=== PATIENT | female | born 1945 | race Caucasian/White ===

== ENCOUNTER 2019-12-07 17:16 | Observation (INO) ==
[~2019-12-07 17:16] MED LIST: ONDANSETRON 8 MG TAB.RAPDIS PO PRN
[2019-12-07] MEDS ORDERED: ALBUTEROL SULFATE/IPRATROPIUM 3 ML NEBU IH ONE ×2 (17:34→17:36)
[2019-12-07 17:52] LABS: Hematocrit 39.4 % (37.0-47.0); Mean Cell Volume 84.2 fl (78-100); Mean Corpuscular Hemoglobin 27.8 pg (27-31); Mean Platelet Volume 9.1 fl (8-12.5); Neutrophil # 4.9 K/mm3 (1.3-6.0); Neutrophil % 88.6 % (42-75.0); Platelet Count 220 K/mm3 (150-450); Red Blood Count 4.68 M/mm3 (4.2-5.4); Red Cell Distribution Width 14.8 % (11.5-14.0); White Blood Count 5.5 K/mm3 (4.0-10.5)
--- NOTE | 2019-12-07 17:55 | ERNOTE ---
Medical Problem HPI - Narrative Date of Service: 12/07/19 - General Chief Complaint: Nausea/Vomiting Time Seen by Provider: 12/07/19 17:27 Source: patient Exam Limitations: no limitations - Immun/Allergies/Home Medications Immunizations: IMMUNIZATION HX Immunizations Up to Date Yes History of Influenza Vaccine Yes Hx Pneumococcal Vaccination No Allergies/Adverse Reactions: Allergies No Known Allergies Allergy (Verified 12/07/19 17:22) Home Medications: HOME MEDICATIONS Aspirin 325 mg PO DAILY 06/29/14 [Last Taken 12/02/19] ALPRAZolam [Xanax] 0.5 mg PO BID PRN 04/21/18 [Last Taken Unknown] Cetirizine HCl [Zyrtec] 10 mg PO DAILY PRN 04/21/18 [Last Taken 12/04/19] Famotidine 20 mg PO DAILY PRN 04/21/18 [Last Taken 12/05/19] blood sugar diagnostic See Dose Instructions .ROUTE .MEDSUPPLY #20 ea 05/22/18 [Last Taken Unknown] diabetic supplies, miscellan. See Dose Instructions .ROUTE .MEDSUPPLY #1 ea 05/22/18 [Last Taken Unknown] epinephrine 0.3 mg/0.3 mL injection, auto-injector 0.3 mg IM Q10-15M PRN 05/22/18 [Last Taken Unknown] lancets 33 gauge See Dose Instructions .ROUTE .MEDSUPPLY #100 ea 05/22/18 [Last Taken Unknown] multivitamin 1 tab PO DAILY 05/22/18 [Last Taken 12/05/19] albuterol sulfate 2.5 mg INHALATION Q6H PRN #90 ml 02/07/19 [Last Taken Unknown] diltiazem HCl 240 mg capsule,24 hr,extended release 240 mg PO BID #60 cap 05/03/19 [Last Taken 12/06/19] furosemide 20 mg tablet 20 mg PO DAILY PRN #30 tab 07/13/19 [Last Taken 12/05/19] hydrochlorothiazide 50 mg tablet 50 mg PO QAM PRN #30 tab 07/23/19 [Last Taken 12/05/19] escitalopram oxalate 5 mg tablet 5 mg PO DAILY #90 tab 10/29/19 [Last Taken 12/05/19] meloxicam 15 mg tablet 15 mg PO DAILY #30 tab 10/29/19 [Last Taken 12/05/19] metformin 500 mg tablet See Rx Instructions .ROUTE .COMPLEX #60 unspecified 10/29/19 [Last Taken 12/05/19] potassium chloride 10 mEq tablet,extended release See Rx Instructions .ROUTE .COMPLEX unspecified 10/29/19 [Last Taken 12/05/19] sodium,potassium,mag sulfates 17.5 gram-3.13 gram-1.6 gram oral soln 177 ml PO DAILY 0 Days #354 ml 11/13/19 [Last Taken 12/06/19] atorvastatin 20 mg tablet See Rx Instructions .ROUTE .COMPLEX #30 unspecified 11/19/19 [Last Taken 12/05/19] - Pain Score Pain Score #1 Pain Score: 0 - History of Present History Narrative: The patient is a 74 year old female who presents for vomiting and feeling unwell which has been present since this am. There are associated symptoms of fatigue, fever, nasal congestion and cough. The patient denies pain. There are no alleviating factors. There are no aggravating factors. Previous treatments have included: none. The past medical history includes: DM, CVA, anxiety, depression, HTN and GERD. The social history is negative. The patient has had ill contacts at home. Patient states she had colonoscopy yesterday and was feeling fine. Patient states she awoke this am feeling per her normal then as the day progressed developed nasal congestion, cough, chills, fever and fatigue. Patient had emesis upon arrival to hospital. Review of Systems - Review of Systems Constitutional: Present: fever, chills, fatigue, malaise EYE: Present: no symptoms reported. Absent: vision changes ENT: Present: nose congestion, nasal drainage. Absent: ear pain, sore throat Respiratory: Present: shortness of breath, cough Cardiology: Present: no symptoms reported. Absent: chest pain Gastrointestinal/Abdominal: Present: nausea, vomiting. Absent: diarrhea, abdominal pain, eating less, drinking less Genitourinary: Present: no symptoms reported. Absent: dysuria, decreased urinary output Musculoskeletal: Present: no symptoms reported. Absent: back pain, joint pain Skin: Present: no symptoms reported. Absent: rash Neurological: Present: no symptoms reported. Absent: headache, dizziness/light- headedness All Other Systems: All systems neg except as marked Medical History (Last Reviewed 12/07/19 @ 17:40 by DAVID Cesar) Diabetes (Chronic) Onset Date: ~02/24/18 Acid reflux disease (Chronic) Onset Date: ~02/29/16 Allergic rhinitis (Chronic) Onset Date: ~01/08/14 Generalized anxiety disorder (Chronic) Onset Date: ~05/07/13 CVA (cerebral vascular accident) (Chronic) Depression (Chronic) Onset Date: ~11/10/14 Essential hypertension (Chronic) GERD (gastroesophageal reflux disease) (Chronic) Onset Date: ~10/14/14 Hyperlipidemia (Chronic) Onset Date: ~01/08/14 Hypokalemia (Chronic) Onset Date: ~04/07/16 Pancreatitis (Chronic) Onset Date: ~12/1972 Urinary incontinence (Chronic) Onset Date: ~05/07/13 Edema Weight loss Surgical History: Surgical History (Last Reviewed 12/07/19 @ 17:40 by DAVID Cesar) History of appendectomy Onset Date: ~1992 open History of cataract Onset Date: ~07/2013 bilateral History of cholecystectomy Onset Date: ~1972 open History of eye surgery to treat cross eye History of vaginal hysterectomy Onset Date: ~01/1993 kept ovaries Family History: Family History (Last Reviewed 12/07/19 @ 17:40 by DAVID Cesar) Brother History of open heart surgery 2 brothers Heart disease Mother , age 70's Myocardial infarction Diabetes Uncle CVA (cerebral vascular accident) Hypertension Father , accident Medical history unknown Aunt Cancer unknown type Sister No problems noted. 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 Service: No Tobacco: Smoking Status: Never smoker Alcohol: alcohol intake: current details: some days Substance Use: substance use type: does not use Dietary Habits: caffeine: Yes Personal Safety: victim of physical abuse: No victim of emotional abuse: No Physical Exam - Physical Exam General Appearance: Present: wd/wn, alert, mild distress Head Exam: Present: normal inspection, no evidence of injury Eye Exam: Normal inspection: bilateral, PERRL: bilateral, EOMI: bilateral Neck: Present: normal inspection Respiratory: Present: no respiratory distress, accessory muscle use, decreased breath sounds, wheezing - right mid lung Cardiovascular/Chest: Present: regular rate, rhythm, no murmur Gastrointestinal/Abdominal: Present: nontender, nondistended, soft, no organome claudia, abnormal bowel sounds - hypoactive Extremity Exam: Present: no edema Neurological Exam: Present: alert, oriented, normal mood/affect, no motor/s ensory deficits Skin Exam: Present: normal color, warm/dry Progress - Date and Time Seen: Date and Time: 12/07/19 18:36 Reviewed available results with patient. Discussed administration of oral potassium with patient, requests anti-nausea medication and then administration of oral potassium instead of IV administration. Patient also developing fever, added lactic acid as well as will administer Tylenol after anti-nausea administered. 12/07/19 19:30 Case discussed with , due to patient's need for oxygen 3l/nc to maintain sats >90% along with diagnosis of influenza a will admit for observation with continued oxygen support. Will initiate Tamiflu due to acute onset of symptoms this am and positive testing. - Results and Orders Patient's Lab Results:: I have reviewed the patient's lab results. - Vital Signs Patient's Vital Signs:: I have reviewed the patient's vital signs. Vital Signs: Vital Signs 12/07/19 17:19 Temperature 36.5 C Pulse Rate 92 Respiratory Rate 16 Blood Pressure 155/82 H O2 Sat by Pulse Oximetry 88 L - EKG EKG #1 EKG: NSR - rate 87, nonspecific ST T wave changes EKG read: Reviewed by me - X-Ray X-Ray #1 X-Ray: abdomen Interpretation: Reviewed by me X-ray Comments: Non-specific bowel gas pattern, no free air. X-Ray #2 X-Ray: chest Interpretation: Reviewed by me X-ray Comments: No acute cardiopulmonary abnormality. - Progress/Reassessment Chief Complaint: Nausea/Vomiting Progress:: Unchanged Departure Clinical Impression: Influenza A, Hypoxia - Departure Disposition: Still a patient Condition: Stable
[2019-12-07 18:09] LABS: ALT 30 U/L (19-67); AST 23 U/L (0-48); Alkaline Phosphatase * 108 U/L (50-170); Anion Gap 13.6 mmol/L (6.8-13.8); BNP * 164 pg/mL (5-325); BUN/Creatinine Ratio 10.8 (9.0-21.6); Bilirubin, Total 0.7 mg/dL (0.0-1.1); Blood Urea Nitrogen 9 mg/dL (3-23); Ca. Corrected For Albumin 8.3 mg/dL (8.4-10.2); Calcium * 8.6 mg/dL (7.9-10.9); Carbon Dioxide 29.3 mmol/L (24-32.6); Chloride 97 mmol/L (97-106); Glucose * 176 mg/dL (70-110); Potassium 2.9 mmol/L (3.4-4.6); Sodium 137 mmol/L (132-142); Total Protein 7.7 gm/dL (6.2-8.2); Troponin I Less than 0.017 ng/mL (0.00-0.10)
[2019-12-07] MEDS ORDERED: ONDANSETRON HCL/PF 2 MG/ML VIAL IV ONE (18:34)
[2019-12-07] MEDS ORDERED: ACETAMINOPHEN 325 MG TABLET PO ONE (19:11)
[2019-12-07] MEDS ORDERED: POTASSIUM CHLORIDE 20 MEQ TABLET.SA PO ONE (19:11)
[2019-12-07] MEDS ORDERED: OSELTAMIVIR PHOSPHATE 75 MG CAPSULE PO ONE (19:13)
--- NOTE | 2019-12-07 20:43 | HP ---
Chief Complaint - Chief Complaint Date of Service: 12/07/19 Time of Service: 20:45 Chief Complaint: Shortness of breath, fever. History of Present Illness: Mrs. Desai has continued to need 3 L of nasal cannula O2 to keep her oxygen above 90%. Continues to be dyspneic and coughing. She has had a temperature of 38.7 degrees.The patient is a 74 year old female who presents for vomiting and feeling unwell which has been present since this am. There are associated symptoms of fatigue, fever, nasal congestion and cough. The patient denies pain. There are no alleviating factors. There are no aggravating factors. Previous treatments have included: none. The past medical history includes: DM, CVA, anxiety, depression, HTN and GERD. The social history is negative. The patient has had ill contacts at home. Patient states she had colonoscopy yesterday and was feeling fine. Patient states she awoke this am feeling per her normal then as the day progressed developed nasal congestion, cough, chills, fever and fatigue. Patient had emesis upon arrival to hospital. Medical History (Last Reviewed 12/07/19 @ 20:23 by Anamaria Reynoso RN) Diabetes (Chronic) Onset Date: ~02/24/18 Acid reflux disease (Chronic) Onset Date: ~02/29/16 Allergic rhinitis (Chronic) Onset Date: ~01/08/14 Generalized anxiety disorder (Chronic) Onset Date: ~05/07/13 CVA (cerebral vascular accident) (Chronic) Depression (Chronic) Onset Date: ~11/10/14 Essential hypertension (Chronic) GERD (gastroesophageal reflux disease) (Chronic) Onset Date: ~10/14/14 Hyperlipidemia (Chronic) Onset Date: ~01/08/14 Hypokalemia (Chronic) Onset Date: ~04/07/16 Pancreatitis (Chronic) Onset Date: ~12/1972 Urinary incontinence (Chronic) Onset Date: ~05/07/13 Edema Weight loss Surgical History: Surgical History (Last Reviewed 12/07/19 @ 20:23 by Anamaria Reynoso RN) History of appendectomy Onset Date: ~1992 open History of cataract Onset Date: ~07/2013 bilateral History of cholecystectomy Onset Date: ~1972 open History of eye surgery to treat cross eye History of vaginal hysterectomy Onset Date: ~01/1993 kept ovaries Family History: Family History (Last Reviewed 12/07/19 @ 20:23 by Anamaria Reynoso RN) Brother History of open heart surgery 2 brothers Heart disease Mother , age 70's Myocardial infarction Diabetes Uncle CVA (cerebral vascular accident) Hypertension Father , accident Medical history unknown Aunt Cancer unknown type Sister No problems noted. Brother , age 70's Cancer lungs, possible stomach Sister History of open heart surgery 1 sister Alive and well 1 sister Social History: (Last Reviewed 12/07/19 @ 20:23 by Anamaria Reynoso RN) Social History: Marital status: household members: spouse number of children: 2 current occupational status: retired current occupation: [employer] Service: No Tobacco: Smoking Status: Never smoker Alcohol: alcohol intake: current details: some days Substance Use: substance use type: does not use Dietary Habits: caffeine: Yes Personal Safety: victim of physical abuse: No victim of emotional abuse: No Review Of Systems (GEN) - Review of Systems Generalized/Overall Review: Present: Weakness, Chills, Fever, Malaise EENTM: Present: No Symptoms Reported Respiratory: Present: Cough, Shortness of Breath, Wheezing Cardiac: Present: No Symptoms Reported Abdominal: Present: Nausea Genitourinary: Present: No Symptoms Reported Musculoskeletal: Present: No Symptoms Reported Neurological: Present: Headache Skin: Present: No Symptoms Reported Endocrine: Present: No Symptoms Reported Misc: All systems neg except as marked Immunizations: IMMUNIZATION HX Immunizations Up to Date Yes History of Influenza Vaccine Yes Hx Pneumococcal Vaccination No Allergies/Adverse Reactions: Allergies Allergy/AdvReac Type Severity Reaction Status Date / Time No Known Allergies Allergy Verified 12/07/19 17:22 Home Medications: HOME MEDICATIONS Aspirin 325 mg PO DAILY 06/29/14 [Last Taken 12/02/19] ALPRAZolam [Xanax] 0.5 mg PO BID PRN 04/21/18 [Last Taken Unknown] Cetirizine HCl [Zyrtec] 10 mg PO DAILY PRN 04/21/18 [Last Taken 12/04/19] Famotidine 20 mg PO DAILY PRN 04/21/18 [Last Taken 12/05/19] blood sugar diagnostic See Dose Instructions .ROUTE .MEDSUPPLY #20 ea 05/22/18 [Last Taken Unknown] diabetic supplies, miscellan. See Dose Instructions .ROUTE .MEDSUPPLY #1 ea 05/22/18 [Last Taken Unknown] epinephrine 0.3 mg/0.3 mL injection, auto-injector 0.3 mg IM Q10-15M PRN 05/22/18 [Last Taken Unknown] lancets 33 gauge See Dose Instructions .ROUTE .MEDSUPPLY #100 ea 05/22/18 [Last Taken Unknown] multivitamin 1 tab PO DAILY 05/22/18 [Last Taken 12/05/19] albuterol sulfate 2.5 mg INHALATION Q6H PRN #90 ml 02/07/19 [Last Taken Unknown] diltiazem HCl 240 mg capsule,24 hr,extended release 240 mg PO BID #60 cap 05/03/19 [Last Taken 12/06/19] furosemide 20 mg tablet 20 mg PO DAILY PRN #30 tab 07/13/19 [Last Taken 12/05/19] hydrochlorothiazide 50 mg tablet 50 mg PO QAM PRN #30 tab 07/23/19 [Last Taken 12/05/19] escitalopram oxalate 5 mg tablet 5 mg PO DAILY #90 tab 10/29/19 [Last Taken 12/05/19] meloxicam 15 mg tablet 15 mg PO DAILY #30 tab 10/29/19 [Last Taken 12/05/19] metformin 500 mg tablet See Rx Instructions .ROUTE .COMPLEX #60 unspecified 10/29/19 [Last Taken 12/05/19] potassium chloride 10 mEq tablet,extended release See Rx Instructions .ROUTE .COMPLEX unspecified 10/29/19 [Last Taken 12/05/19] sodium,potassium,mag sulfates 17.5 gram-3.13 gram-1.6 gram oral soln 177 ml PO DAILY 0 Days #354 ml 11/13/19 [Last Taken 12/06/19] atorvastatin 20 mg tablet See Rx Instructions .ROUTE .COMPLEX #30 unspecified 11/19/19 [Last Taken 12/05/19] Exam - Exam Vital Signs: Vital Signs - Last Taken Temp 37.7 C 12/07/19 20:09 Pulse 85 12/07/19 20:09 Resp 18 12/07/19 20:09 BP 163/74 H 12/07/19 20:09 Pulse Ox 93 12/07/19 20:09 Constitutional: Present: Alert, Oriented x3, Cooperative, Well developed, Well nourished, No distress ENT Exam: Present: normal ENT inspection, hearing grossly normal, pharynx normal, TMs normal Eye Exam: bilateral eye: normal inspection, PERRL, EOMI Neck: Present: non-tender, full range of motion, supple, normal inspection Back Exam: Present: normal inspection Breasts: Present: Exam deferred Respiratory: Present: chest non-tender, crackles, rhonchi, wheezing, expiration (prolonged) Cardiovascular/Chest: Present: normal peripheral pulses, regular rate, rhythm, no chest tenderness, no edema, no gallop, no JVD, no murmur, no rub Peripheral Pulses: carotid (R): 2+, carotid (L): 2+, radial (R): 2+, radial (L): 2+ Abdomen: Present: Normal bowel sounds, soft, nontender, nondistended, no rebound tenderness, no hepatospenomegaly, no masses, obese /Rectal: Present: Exam deferred Extremity: Present: normal range of motion, non-tender, normal inspection, no pedal edema, no calf tenderness, normal capillary refill Skin Exam: Present: normal color, warm/dry, no cyanosis Neurologic: Present: papier mache' molder II-XII nml as tested, normal cerebellar test, no motor/sensory deficits, alert, normal mood/affect Appearance: Present: appropriate appearance, appropriate insight, neat, no memory impairment Eye contact: Present: cooperative, good eye contact, normal speech Thoughts: Present: normal thought pattern, no apparent hallucination Diagnostic Studies: Abnormal Lab Results 12/07/19 12/07/19 12/07/19 Range/Units 17:41 17:41 17:41 RDW 14.8 H (11.5-14.0) % Neutrophils % 88.6 H (42-75.0) % Lymphocytes % 2.5 L (20-51) % Lymphocytes # 0.14 L (1.5-3.5) k/mm3 pO2 (83.0-108.0) mmHg Total CO2 (19.0-24.0) mmol/L ABG O2 Sat (Measured) (94.0-98.0) % Potassium 2.9 L D (3.4-4.6) mmol/L Random Glucose 176 H (70-110) mg/dL Calcium Adj for Albumin 8.3 L (8.4-10.2) mg/dL Influenza A (H1) PCR Detected H (NotDetected) 12/07/19 Range/Units 17:45 RDW (11.5-14.0) % Neutrophils % (42-75.0) % Lymphocytes % (20-51) % Lymphocytes # (1.5-3.5) k/mm3 pO2 60.7 L (83.0-108.0) mmHg Total CO2 28.3 H (19.0-24.0) mmol/L ABG O2 Sat (Measured) 92.2 L (94.0-98.0) % Potassium (3.4-4.6) mmol/L Random Glucose (70-110) mg/dL Calcium Adj for Albumin (8.4-10.2) mg/dL Influenza A (H1) PCR (NotDetected) Laboratory Results WBC 5.5 K/mm3 (4.0-10.5) 12/07/19 17:41 RBC 4.68 M/mm3 (4.2-5.4) 12/07/19 17:41 Hgb 13.0 gm/dL (12.5-16.0) 12/07/19 17:41 Hct 39.4 % (37.0-47.0) 12/07/19 17:41 MCV 84.2 fl (78-100) 12/07/19 17:41 MCH 27.8 pg (27-31) 12/07/19 17:41 MCHC 33.0 g/dl (32-36) 12/07/19 17:41 RDW 14.8 % (11.5-14.0) H 12/07/19 17:41 Plt Count 220 K/mm3 (150-450) 12/07/19 17:41 MPV 9.1 fl (8-12.5) 12/07/19 17:41 Immature Gran % (Auto) 0.20 % (0.001-0.429) 12/07/19 17:41 Immature Gran # (Auto) 0.01 K/mm3 (0.000-0.0310) 12/07/19 17:41 Neutrophils % 88.6 % (42-75.0) H 12/07/19 17:41 Lymphocytes % 2.5 % (20-51) L 12/07/19 17:41 Monocytes % 7.8 % (0.0-9) 12/07/19 17:41 Eosinophils % 0.0 % (0.0-3.0) 12/07/19 17:41 Basophils % 0.9 % (0.0-1.0) 12/07/19 17:41 Nucleated RBC % 0.0 k/mm3 (0-1) 12/07/19 17:41 Neutrophils # 4.9 K/mm3 (1.3-6.0) 12/07/19 17:41 Lymphocytes # 0.14 k/mm3 (1.5-3.5) L 12/07/19 17:41 Monocytes # 0.4 k/mm3 (0.0-1.0) 12/07/19 17:41 Eosinophils # 0.0 k/mm3 (0.0-0.7) 12/07/19 17:41 Absolute Basophils 0.1 k/mm3 (0.0-0.1) 12/07/19 17:41 pCO2 40.3 mmHg (32.0-45.0) 12/07/19 17:45 pO2 60.7 mmHg (83.0-108.0) L 12/07/19 17:45 HCO3 27.1 mmol/L (21.0-28.0) 12/07/19 17:45 Total CO2 28.3 mmol/L (19.0-24.0) H 12/07/19 17:45 Base Excess 2.8 mmol/L (-2.0-3.0) 12/07/19 17:45 ABG pH 7.45 (7.35-7.45) 12/07/19 17:45 ABG O2 Sat (Measured) 92.2 % (94.0-98.0) L 12/07/19 17:45 Sodium 137 mmol/L (132-142) 12/07/19 17:41 Plasma Sodium 138 mmol/L (130-142) 12/07/19 17:41 Potassium 2.9 mmol/L (3.4-4.6) L D 12/07/19 17:41 Chloride 97 mmol/L (97-106) 12/07/19 17:41 Carbon Dioxide 29.3 mmol/L (24-32.6) 12/07/19 17:41 Anion Gap 13.6 mmol/L (6.8-13.8) 12/07/19 17:41 BUN 9 mg/dL (3-23) D 12/07/19 17:41 Creatinine 0.83 mg/dL (0.4-1.4) 12/07/19 17:41 Est GFR (Non-Af Amer) 72 mL/min (60-130) 12/07/19 17:41 BUN/Creatinine Ratio 10.8 (9.0-21.6) 12/07/19 17:41 Random Glucose 176 mg/dL (70-110) H 12/07/19 17:41 Lactic Acid, Venous 1.0 mmol/L (0.4-2.0) 12/07/19 17:23 Calcium 8.6 mg/dL (7.9-10.9) 12/07/19 17:41 Calcium Adj for Albumin 8.3 mg/dL (8.4-10.2) L 12/07/19 17:41 Total Bilirubin 0.7 mg/dL (0.0-1.1) 12/07/19 17:41 AST 23 U/L (0-48) 12/07/19 17:41 ALT 30 U/L (19-67) 12/07/19 17:41 Alkaline Phosphatase 108 U/L (50-170) 12/07/19 17:41 Troponin I Less than 0.017 ng/mL (0.00-0.10) 12/07/19 17:41 B-Natriuretic Peptide 164 pg/mL (5-325) 12/07/19 17:41 Total Protein 7.7 gm/dL (6.2-8.2) 12/07/19 17:41 Albumin 4.0 gm/dl (3.4-5.0) 12/07/19 17:41 Chlamy pneumoniae PCR Not detected (NotDetected) 12/07/19 17:41 Adenovirus (PCR) Not detected (NotDetected) 12/07/19 17:41 B. pertussis DNA (PCR) Not detected (NotDetected) 12/07/19 17:41 Coronavirus OC43 (PCR) Not detected (NotDetected) 12/07/19 17:41 Coronavirus HKU1 (PCR) Not detected (NotDetected) 12/07/19 17:41 Coronavirus 229E (PCR) Not detected (NotDetected) 12/07/19 17:41 Coronavirus NL63 (PCR) Not detected (NotDetected) 12/07/19 17:41 Human Metapneumovir PCR Not detected (NotDetected) 12/07/19 17:41 Influenza A (H1) PCR Detected (NotDetected) H 12/07/19 17:41 Influenza A (H1N1) PCR Not detected (NotDetected) 12/07/19 17:41 Influenza A (H3) PCR Not detected (NotDetected) 12/07/19 17:41 Influenza B (RT-PCR) Not detected (NotDetected) 12/07/19 17:41 M. pneumoniae (PCR) Not detected (NotDetected) 12/07/19 17:41 Parainfluenza 1 (PCR) Not detected (NotDetected) 12/07/19 17:41 Parainfluenza 2 (PCR) Not detected (NotDetected) 12/07/19 17:41 Parainfluenza 3 (PCR) Not detected (NotDetected) 12/07/19 17:41 Parainfluenza 4 (PCR) Not detected (NotDetected) 12/07/19 17:41 RSV (PCR) Not detected (NotDetected) 12/07/19 17:41 Rhinovirus (PCR) Not detected (NotDetected) 12/07/19 17:41 Assessment/Plan - Narrative Narrative: Continue respiratory therapy. Wean off of O2 as soon as possible. Progress activity and diet as tolerated. - Assessment/Plan (1) Influenza A Problem: Acute (2) Hypoxia Problem: Acute (3) Diabetes Problem: Chronic Qualifiers: Diabetes mellitus type: type 2 Diabetes mellitus skilled nursing insulin use: without terminal supervisor use Diabetes mellitus complication status: without complication Qualified Code(s): E11.9 - Type 2 diabetes mellitus without complications (4) Morbid obesity with BMI of 40.0-44.9, adult Problem: Acute (5) Mild intermittent asthma with (acute) exacerbation Problem: Acute (6) Nausea Problem: Acute (7) Headache Problem: Acute Qualifiers: Headache type: tension-type Headache chronicity pattern: acute headache Qualified Code(s): G44.201 - Tension-type headache, unspecified, intractable
[2019-12-07] MEDS: OSELTAMIVIR PHOSPHATE 75 MG CAPSULE PO SCH (21:55)
[2019-12-07] MEDS: ENOXAPARIN SODIUM 40 MG/0.4 ML SYRG SC SCH (21:56)
[2019-12-07] MEDS: CARISOPRODOL 350 MG TABLET PO PRN (21:58)
[2019-12-08 06:28] LABS: Hematocrit 38.9 % (37.0-47.0); Hemoglobin 12.5 gm/dL (12.5-16.0); Mean Cell Volume 84.6 fl (78-100); Mean Corpuscular Hemoglobin 27.2 pg (27-31); Mean Corpuscular Hgb Conc 32.1 g/dl (32-36); Mean Platelet Volume 9.6 fl (8-12.5); Neutrophil # 3.3 K/mm3 (1.3-6.0); Neutrophil % 76.6 % (42-75.0); Platelet Count 222 K/mm3 (150-450); Red Cell Distribution Width 14.6 % (11.5-14.0); White Blood Count 4.3 K/mm3 (4.0-10.5)
[2019-12-08 06:44] LABS: Albumin * 3.4 gm/dl (3.4-5.0); Anion Gap 9.4 mmol/L (6.8-13.8); BUN/Creatinine Ratio 15.7 (9.0-21.6); Bilirubin, Total 0.5 mg/dL (0.0-1.1); Ca. Corrected For Albumin 8.3 mg/dL (8.4-10.2); Calcium * 8.1 mg/dL (7.9-10.9); Carbon Dioxide 33.9 mmol/L (24-32.6); Potassium 3.3 mmol/L (3.4-4.6); Total Protein 6.9 gm/dL (6.2-8.2)
[2019-12-08] MEDS: OSELTAMIVIR PHOSPHATE 75 MG CAPSULE PO SCH ×2 (08:44→20:45)
[2019-12-08] MEDS ORDERED: ALBUTEROL SULFATE 2.5 MG/0.5 ML VIAL.NEB IH PRN (11:37)
[2019-12-08] MEDS ORDERED: FUROSEMIDE 20 MG TABLET PO PRN (11:37)
[2019-12-08] MEDS: FAMOTIDINE 20 MG TABLET PO SCH ×2 (11:52→20:39)
[2019-12-08] MEDS: ALBUTEROL SULFATE/IPRATROPIUM 3 ML NEBU IH SCH ×2 (13:03→19:15)
[2019-12-08] MEDS: POTASSIUM CHLORIDE 10 MEQ TABLET.SA PO SCH (18:01)
--- NOTE | 2019-12-08 18:15 | PN ---
Subjective - Date and Time Seen Date: 12/08/19 Time: 10:15 Subjective Narrative: Feroz Desai is a 74-year-old female patient of Dr. Figueroa. She was admitted with influenza A with hypoxemia. This morning she has weaned off of her BiPAP and is feeling better. She is in no distress this time of my exam this morning. Objective - Review of Systems Generalized/Overall Review: Reports: Weakness, Malaise EENTM: Reports: No Symptoms Reported Respiratory: Reports: Cough, Shortness of Breath, Wheezing Cardiac: Reports: No Symptoms Reported Abdominal: Reports: No Symptoms Reported Genitourinary Symptoms: Reports: No Symptoms Reported Musculoskeletal Complaints: Reports: No Symptoms Reported Neurological: Reports: No Symptoms Reported Skin: Reports: No Symptoms Reported Endocrine: Reports: No Symptoms Reported - Vitals Vitals: Last Vital Signs Temp 36.9 C 12/08/19 14:46 Pulse 68 12/08/19 14:46 Resp 18 12/08/19 14:46 BP 141/74 12/08/19 14:46 Pulse Ox 95 12/08/19 14:46 - Abnormal Lab Findings Abnormal Lab Findings: Abnormal Lab Results 12/07/19 12/07/19 12/08/19 Range/Units 17:41 17:41 05:47 RDW 14.6 H (11.5-14.0) % Neutrophils % 76.6 H (42-75.0) % Lymphocytes % 8.4 L (20-51) % Monocytes % 14.1 H (0.0-9) % Lymphocytes # 0.36 L (1.5-3.5) k/mm3 Potassium 2.9 L D (3.4-4.6) mmol/L Carbon Dioxide (24-32.6) mmol/L Random Glucose 176 H (70-110) mg/dL Calcium Adj for Albumin 8.3 L (8.4-10.2) mg/dL Influenza A (H1) PCR Detected H (NotDetected) 12/08/19 Range/Units 05:47 RDW (11.5-14.0) % Neutrophils % (42-75.0) % Lymphocytes % (20-51) % Monocytes % (0.0-9) % Lymphocytes # (1.5-3.5) k/mm3 Potassium 3.3 L (3.4-4.6) mmol/L Carbon Dioxide 33.9 H (24-32.6) mmol/L Random Glucose 115 H D (70-110) mg/dL Calcium Adj for Albumin 8.3 L (8.4-10.2) mg/dL Influenza A (H1) PCR (NotDetected) - Exam Constitutional: Present: Alert, Oriented x3, Cooperative, Well developed, Well nourished, No distress ENT Exam: Present: normal ENT inspection, hearing grossly normal, pharynx normal, TMs normal Neck: Present: non-tender, full range of motion, supple, normal inspection Breasts: Present: Exam deferred Respiratory: Present: chest non-tender, rhonchi, wheezing, expiration (pro longed) Cardiovascular/Chest: Present: normal peripheral pulses, regular rate, rhythm, no chest tenderness, no edema, no gallop, no JVD, no murmur, no rub Abdomen: Present: Normal bowel sounds, soft, nontender, nondistended, no rebound tenderness /Rectal: Present: Exam deferred Extremity: Present: normal range of motion, non-tender, normal inspection, no pedal edema, no calf tenderness, normal capillary refill Skin Exam: Present: normal color, warm/dry, no cyanosis 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 Begin respiratory therapy treatments 2. Reconciled medications this morning 3. Continue respiratory droplet isolation precautions - Problems/Diagnosis (1) Influenza A Problem: Acute (2) Hypoxia Problem: Acute (3) Diabetes Problem: Chronic Qualifiers: Diabetes mellitus type: type 2 Diabetes mellitus skilled nursing insulin use: without skilled nursing use Diabetes mellitus complication status: without complication Qualified Code(s): E11.9 - Type 2 diabetes mellitus without complications (4) Morbid obesity with BMI of 40.0-44.9, adult Problem: Acute (5) Mild intermittent asthma with (acute) exacerbation Problem: Acute (6) Nausea Problem: Acute (7) Headache Problem: Acute Qualifiers: Headache type: tension-type Headache chronicity pattern: acute headache Qualified Code(s): G44.201 - Tension-type headache, unspecified, intractable (8) Essential hypertension Problem: Chronic (9) GERD (gastroesophageal reflux disease) Problem: Chronic Qualifiers: Esophagitis presence: with esophagitis Qualified Code(s): K21.0 - Gastro- esophageal reflux disease with esophagitis
[2019-12-08] MEDS: ENOXAPARIN SODIUM 40 MG/0.4 ML SYRG SC SCH (20:41)
[2019-12-08] MEDS: DILTIAZEM HCL 240 MG CAP.SR.24H PO SCH (20:44)
[2019-12-09] MEDS: ALBUTEROL SULFATE/IPRATROPIUM 3 ML NEBU IH SCH ×4 (00:05→18:31)
[2019-12-09] MEDS: DILTIAZEM HCL 240 MG CAP.SR.24H PO SCH ×2 (08:22→21:30)
[2019-12-09] MEDS: OSELTAMIVIR PHOSPHATE 75 MG CAPSULE PO SCH ×2 (08:22→21:43)
[2019-12-09] MEDS: POTASSIUM CHLORIDE 10 MEQ TABLET.SA PO SCH ×2 (08:22→16:48)
[2019-12-09] MEDS: MELOXICAM 15 MG TABLET PO SCH (08:22)
[2019-12-09] MEDS: ESCITALOPRAM OXALATE 10 MG TAB PO SCH (08:22)
[2019-12-09] MEDS: FAMOTIDINE 20 MG TABLET PO SCH ×2 (08:22→21:43)
--- NOTE | 2019-12-09 12:25 | PN ---
Subjective - Date and Time Seen Date: 12/09/19 Time: 11:20 Subjective Narrative: Feroz states she is feeling some better today. She still coughing and having some mild production. She does not seem to be laboring and states that she feels she is breathing some easier today. She has no new problems or complaints. No lab or x-rays to review today. I will do them tomorrow. Objective - Review of Systems Generalized/Overall Review: Reports: Weakness, Malaise - Improving, Fatigue EENTM: Reports: No Symptoms Reported Respiratory: Reports: Cough, Shortness of Breath Cardiac: Reports: No Symptoms Reported Abdominal: Reports: No Symptoms Reported Genitourinary Symptoms: Reports: No Symptoms Reported Musculoskeletal Complaints: Reports: No Symptoms Reported Neurological: Reports: No Symptoms Reported Skin: Reports: No Symptoms Reported Endocrine: Reports: No Symptoms Reported - Vitals Vitals: Last Vital Signs Temp 36.7 C 12/09/19 10:20 Pulse 56 L 12/09/19 10:20 Resp 18 12/09/19 10:20 BP 135/71 12/09/19 10:20 Pulse Ox 98 12/09/19 10:20 - Exam Constitutional: Present: Alert, Oriented x3, Cooperative, Well developed, Well nourished, No distress ENT Exam: Present: normal ENT inspection, hearing grossly normal, pharynx normal, TMs normal, hard of hearing Neck: Present: non-tender, full range of motion, supple, normal inspection Breasts: Present: Exam deferred Respiratory: Present: rhonchi, wheezing, expiration (prolonged) Cardiovascular/Chest: Present: normal peripheral pulses, regular rate, rhythm, no chest tenderness, no edema, no gallop, no JVD, no murmur, no rub Abdomen: Present: Normal bowel sounds, soft, nontender, nondistended, no rebound tenderness, no hepatospenomegaly, no masses, obese /Rectal: Present: Exam deferred Extremity: Present: normal range of motion, non-tender Skin Exam: Present: normal color, warm/dry 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 CBC and CMP tomorrow 2. Chest x-ray tomorrow 3. Continue current therapy 4. Dr. Figueroa will assume her care tomorrow morning. - Problems/Diagnosis (1) Influenza A Problem: Acute (2) Hypoxia Problem: Acute (3) Diabetes Problem: Chronic Qualifiers: Diabetes mellitus type: type 2 Diabetes mellitus terminal worker insulin use: wit hout longterm use Diabetes mellitus complication status: without complication Qualified Code(s): E11.9 - Type 2 diabetes mellitus without complications (4) Morbid obesity with BMI of 40.0-44.9, adult Problem: Acute (5) Mild intermittent asthma with (acute) exacerbation Problem: Acute (6) Nausea Problem: Acute (7) Headache Problem: Acute Qualifiers: Headache type: tension-type Headache chronicity pattern: acute headache Qualified Code(s): G44.201 - Tension-type headache, unspecified, intractable (8) Essential hypertension Problem: Chronic (9) GERD (gastroesophageal reflux disease) Problem: Chronic Qualifiers: Esophagitis presence: with esophagitis Qualified Code(s): K21.0 - Gastro- esophageal reflux disease with esophagitis
[2019-12-09] MEDS: ENOXAPARIN SODIUM 40 MG/0.4 ML SYRG SC SCH (21:28)
[2019-12-10] MEDS: CARISOPRODOL 350 MG TABLET PO PRN (00:57)
[2019-12-10] MEDS: ALBUTEROL SULFATE/IPRATROPIUM 3 ML NEBU IH SCH ×3 (01:31→13:28)
[2019-12-10 06:46] LABS: Hematocrit 40.6 % (37.0-47.0); Hemoglobin 13.1 gm/dL (12.5-16.0); Mean Cell Volume 85.8 fl (78-100); Mean Corpuscular Hemoglobin 27.7 pg (27-31); Mean Corpuscular Hgb Conc 32.3 g/dl (32-36); Mean Platelet Volume 9.4 fl (8-12.5); Neutrophil # 1.4 K/mm3 (1.3-6.0); Neutrophil % 51.9 % (42-75.0); Platelet Count 226 K/mm3 (150-450); Red Blood Count 4.73 M/mm3 (4.2-5.4); Red Cell Distribution Width 14.6 % (11.5-14.0); White Blood Count 2.8 K/mm3 (4.0-10.5)
[2019-12-10 07:09] LABS: Albumin * 3.3 gm/dl (3.4-5.0); Anion Gap 9.5 mmol/L (6.8-13.8); BUN/Creatinine Ratio 19.4 (9.0-21.6); Bilirubin, Total 0.2 mg/dL (0.0-1.1); Calcium * 8.8 mg/dL (7.9-10.9); Carbon Dioxide 31.8 mmol/L (24-32.6); Potassium 4.3 mmol/L (3.4-4.6); Total Protein 6.9 gm/dL (6.2-8.2)
[2019-12-10] MEDS: DILTIAZEM HCL 240 MG CAP.SR.24H PO SCH (08:46)
[2019-12-10] MEDS: OSELTAMIVIR PHOSPHATE 75 MG CAPSULE PO SCH (08:47)
[2019-12-10] MEDS: MELOXICAM 15 MG TABLET PO SCH (08:47)
[2019-12-10] MEDS: POTASSIUM CHLORIDE 10 MEQ TABLET.SA PO SCH (08:47)
[2019-12-10] MEDS: FAMOTIDINE 20 MG TABLET PO SCH (08:47)
[2019-12-10] MEDS: ESCITALOPRAM OXALATE 10 MG TAB PO SCH (08:47)
--- NOTE | 2019-12-10 11:47 | DS ---
(1) Influenza A Problem: Acute (2) Hypoxia Problem: Acute (3) Morbid obesity with BMI of 40.0-44.9, adult Problem: Chronic (4) Diabetes Problem: Chronic Qualifiers: Diabetes mellitus type: type 2 Diabetes mellitus intermediate accountant insulin use: without intermediate accountant use Diabetes mellitus complication status: without complication Qualified Code(s): E11.9 - Type 2 diabetes mellitus without complications (5) Generalized anxiety disorder Problem: Chronic (6) Essential hypertension Problem: Chronic (7) GERD (gastroesophageal reflux disease) Problem: Chronic Qualifiers: Esophagitis presence: with esophagitis Qualified Code(s): K21.0 - Gastro- esophageal reflux disease with esophagitis (8) Hyperlipidemia Problem: Chronic Qualifiers: Hyperlipidemia type: unspecified Qualified Code(s): E78.5 - Hyperlipidemia, unspecified Date of Discharge:: 12/10/19 Hospital Course: GERD, diabetes, depression, CVA, hypertension, hyperlipidemia, hypokalemia, anxiety presents from home with complaints of fever and shortness of breath. She was found to be hypoxic and positive for influenza A. She was started on Tamiflu and supplemental oxygen. She is doing well and has been titrated off of the oxygen. She will complete 4 more doses of Tamiflu for a total of 5 days. She will be discharged home today in stable condition. She will follow-up with me in the office in 1 to 2 weeks. Procedures Performed: none - 74-year-old female with a past medical history of Results and Findings: Pending Mircobiology Results 12/07/19 17:58 Blood Blood Culture - Preliminary NO GROWTH AFTER 48 HOURS 12/07/19 17:41 Blood Blood Culture - Preliminary NO GROWTH AFTER 48 HOURS Lab Pending Results 12/07/19 17:23: Lactic Acid, Venous 1.0 12/07/19 17:41: WBC 5.5, RBC 4.68, Hgb 13.0, Hct 39.4, MCV 84.2, MCH 27.8, MCHC 33.0, RDW 14.8 H, Plt Count 220, MPV 9.1, Immature Gran % (Auto) 0.20, Immature Gran # (Auto) 0.01, Neutrophils % 88.6 H, Lymphocytes % 2.5 L, Monocytes % 7.8, Eosinophils % 0.0, Basophils % 0.9, Nucleated RBC % 0.0, Neutrophils # 4.9, Lymphocytes # 0.14 L, Monocytes # 0.4, Eosinophils # 0.0, Absolute Basophils 0.1 12/07/19 17:41: Sodium 137, Plasma Sodium 138, Potassium 2.9 L D, Chloride 97, Carbon Dioxide 29.3, Anion Gap 13.6, BUN 9 D, Creatinine 0.83, Est GFR (Non-Af Amer) 72, BUN/Creatinine Ratio 10.8, Random Glucose 176 H, Calcium 8.6, Calcium Adj for Albumin 8.3 L, Total Bilirubin 0.7, AST 23, ALT 30, Alkaline Phosphatase 108, Troponin I Less than 0.017, B-Natriuretic Peptide 164, Total Protein 7.7, Albumin 4.0 12/07/19 17:41: Chlamy pneumoniae PCR Not detected, Adenovirus (PCR) Not detected, B. pertussis DNA (PCR) Not detected, Coronavirus OC43 (PCR) Not detected, Coronavirus HKU1 (PCR) Not detected, Coronavirus 229E (PCR) Not detected, Coronavirus NL63 (PCR) Not detected, Human Metapneumovir PCR Not detected, Influenza A (H1) PCR Detected H, Influenza A (H1N1) PCR Not detected, Influenza A (H3) PCR Not detected, Influenza B (RT-PCR) Not detected, M. pneumoniae (PCR) Not detected, Parainfluenza 1 (PCR) Not detected, Parainfluenza 2 (PCR) Not detected, Parainfluenza 3 (PCR) Not detected, Parainfluenza 4 (PCR) Not detected, RSV (PCR) Not detected, Rhinovirus (PCR) Not detected 12/07/19 17:45: pCO2 40.3, pO2 60.7 L, HCO3 27.1, Total CO2 28.3 H, Base Excess 2.8, ABG pH 7.45, ABG O2 Sat (Measured) 92.2 L 12/08/19 05:47: WBC 4.3 D, RBC 4.60, Hgb 12.5, Hct 38.9, MCV 84.6, MCH 27.2, MCHC 32.1, RDW 14.6 H, Plt Count 222, MPV 9.6, Immature Gran % (Auto) 0.20, Immature Gran # (Auto) 0.01, Neutrophils % 76.6 H, Lymphocytes % 8.4 L, Monocytes % 14.1 H, Eosinophils % 0.0, Basophils % 0.7, Nucleated RBC % 0.0, Neutrophils # 3.3, Lymphocytes # 0.36 L, Monocytes # 0.6, Eosinophils # 0.0, Absolute Basophils 0.0 12/08/19 05:47: Sodium 138, Plasma Sodium 138, Potassium 3.3 L, Chloride 98, Carbon Dioxide 33.9 H, Anion Gap 9.4, BUN 11, Creatinine 0.70, Est GFR (Non-Af Amer) 87 D, BUN/Creatinine Ratio 15.7, Random Glucose 115 H D, Calcium 8.1, Calcium Adj for Albumin 8.3 L, Total Bilirubin 0.5, AST 23, ALT 28, Alkaline Phosphatase 94, Total Protein 6.9, Albumin 3.4 12/10/19 06:10: WBC 2.8 L D, RBC 4.73, Hgb 13.1, Hct 40.6, MCV 85.8, MCH 27.7, MCHC 32.3, RDW 14.6 H, Plt Count 226, MPV 9.4, Immature Gran % (Auto) 0.40, Immature Gran # (Auto) 0.01, Neutrophils % 51.9, Lymphocytes % 31.3, Monocytes % 11.3 H, Eosinophils % 3.6 H, Basophils % 1.5 H, Nucleated RBC % 0.0, Neutrophils # 1.4, Lymphocytes # 0.86 L, Monocytes # 0.3, Eosinophils # 0.1, Absolute Basophils 0.0 12/10/19 06:10: Sodium 141, Plasma Sodium 141, Potassium 4.3 D, Chloride 104, Carbon Dioxide 31.8, Anion Gap 9.5, BUN 13, Creatinine 0.67, Est GFR (Non-Af Amer) 92, BUN/Creatinine Ratio 19.4, Random Glucose 98, Calcium 8.8, Calcium Adj for Albumin 9.0, Total Bilirubin 0.2, AST 20, ALT 25, Alkaline Phosphatase 87, Total Protein 6.9, Albumin 3.3 L Discharge Location: Home Disposition: Home self-care Condition: Stable Discharge Activity: Activity as tolerated Discharge Diet: Consistent carbs Prescriptions (Any new or edited meds): Oseltamivir Phosphate [Tamiflu] 75 mg PO BID #4 cap Transmission Status: Pending to [place], [place] Complete Home Medications List: Complete Home Medication List: Aspirin 325 mg PO DAILY 06/29/14 Cetirizine HCl [Zyrtec] 10 mg PO BID 04/21/18 Famotidine 20 mg PO BID 04/21/18 blood sugar diagnostic See Dose Instructions .ROUTE .MEDSUPPLY #20 ea 05/22/18 diabetic supplies, miscellan. See Dose Instructions .ROUTE .MEDSUPPLY #1 ea 05/22/18 epinephrine 0.3 mg/0.3 mL injection, auto-injector 0.3 mg IM Q10-15M PRN 05/22/18 lancets 33 gauge See Dose Instructions .ROUTE .MEDSUPPLY #100 ea 05/22/18 multivitamin 1 tab PO DAILY 05/22/18 albuterol sulfate 2.5 mg INHALATION Q6H PRN #90 ml 02/07/19 diltiazem HCl 240 mg capsule,24 hr,extended release 240 mg PO BID #60 cap 05/03/19 furosemide 20 mg tablet 20 mg PO DAILY PRN #30 tab 07/13/19 hydrochlorothiazide 50 mg tablet 50 mg PO QAM PRN #30 tab 07/23/19 escitalopram oxalate 5 mg tablet 5 mg PO DAILY #90 tab 10/29/19 meloxicam 15 mg tablet 15 mg PO DAILY #30 tab 10/29/19 potassium chloride 10 mEq tablet,extended release 40 meq PO BID unspecified 10/29/19 Atorvastatin Calcium [Lipitor] 1 tab PO DAILY 12/08/19 metFORMIN HCL [Metformin HCl] 1 tab PO BID 12/08/19 Oseltamivir Phosphate [Tamiflu] 75 mg PO BID #4 cap 12/10/19
[2019-12-10 16:25] VITALS: BP 150/81
== END 2019-12-10 16:55 | disposition home or self-care (01) ==
LOC: MS 17:16 → ER 17:16 → MS 19:50
PROVIDERS: ADMIT Family Medicine; ATTEND Internal Medicine
DX: K21.0 Gastro-esophageal reflux disease with esophagitis; R09.02 Hypoxemia; J45.21 Mild intermittent asthma with (acute) exacerbation; R06.00 Dyspnea, unspecified; F41.1 Generalized anxiety disorder; I10 Essential (primary) hypertension; J09.X2 Influenza due to identified novel influenza A virus with other respiratory manifestations; E78.5 Hyperlipidemia, unspecified; G44.201 Tension-type headache, unspecified, intractable; E66.01 Morbid (severe) obesity due to excess calories; Z68.41 Body mass index [BMI] 40.0-44.9, adult; E11.9 Type 2 diabetes mellitus without complications
CPT/HCPCS: 36415; 36600; 71020; 71046; 74019; 74020; 80053; 82803; 83519; 83605; 83880; 84484; 85025; 87040; 87633; 93005; 94640; 94664; 94760; 96374; 99285; G0378; J2405

== ENCOUNTER 2020-09-28 10:53 | Inpatient (IN) ==
[2020-09-28 12:05] LABS: Hematocrit 38.5 % (37.0-47.0); Hemoglobin 12.6 gm/dL (12.5-16.0); Mean Cell Volume 84.2 fl (78-100); Mean Corpuscular Hemoglobin 27.6 pg (27-31); Mean Corpuscular Hgb Conc 32.7 g/dl (32-36); Mean Platelet Volume 9.7 fl (8-12.5); Neutrophil # 4.2 K/mm3 (1.3-6.0); Neutrophil % 79.2 % (42-75.0); Platelet Count 200 K/mm3 (150-450); Red Blood Count 4.57 M/mm3 (4.2-5.4); Red Cell Distribution Width 14.6 % (11.5-14.0); White Blood Count 5.3 K/mm3 (4.0-10.5)
--- NOTE | 2020-09-28 12:06 | ERNOTE ---
Time Seen by Provider: 09/28/20 11:42 Stated Complaint: covid +, confused Source: patient Exam Limitations: no limitations Immunizations: IMMUNIZATION HX Immunizations Up to Date Yes History of Influenza Vaccine Yes Hx Pneumococcal Vaccination No Allergies/Adverse Reactions: Allergies No Known Allergies Allergy (Verified 09/28/20 11:33) Home Medications: HOME MEDICATIONS Aspirin 325 mg PO DAILY 06/29/14 [Last Taken 12/02/19] Cetirizine HCl [Zyrtec] 10 mg PO BID 04/21/18 [Last Taken 12/04/19] diabetic supplies, miscellan. See Dose Instructions .ROUTE .MEDSUPPLY #1 ea 05/22/18 [Last Taken Unknown] epinephrine 0.3 mg/0.3 mL injection, auto-injector 0.3 mg IM Q10-15M PRN 05/22/18 [Last Taken Unknown] lancets 33 gauge See Dose Instructions .ROUTE .MEDSUPPLY #100 ea 05/22/18 [Last Taken Unknown] multivitamin 1 tab PO DAILY 05/22/18 [Last Taken 12/05/19] escitalopram oxalate 5 mg tablet 5 mg PO DAILY #90 tab 10/29/19 [Last Taken 12/05/19] albuterol sulfate 2.5 mg INHALATION Q6H PRN #90 ml 12/17/19 [Last Taken Unknown] blood sugar diagnostic See Dose Instructions .ROUTE .MEDSUPPLY #50 ea 12/17/19 [Last Taken Unknown] metformin 500 mg tablet 500 mg PO BID #180 tab 01/03/20 [Last Taken Unknown] diltiazem HCl 240 mg capsule,24 hr,extended release 240 mg PO BID #180 cap 06/13/20 [Last Taken Unknown] potassium chloride 10 mEq tablet,extended release 40 meq PO BID #240 tab 08/22/20 [Last Taken Unknown] meloxicam 15 mg tablet 15 mg PO DAILY #30 tab 09/01/20 [Last Taken Unknown] atorvastatin 20 mg tablet 20 mg PO DAILY #30 tab 09/08/20 [Last Taken Unknown] ciclopirox 8 % topical solution 1 applic TP DAILY 28 Days #6.6 ml 09/08/20 [Last Taken Unknown] famotidine 20 mg tablet 20 mg PO BID #60 tab 09/08/20 [Last Taken Unknown] furosemide 20 mg tablet 20 mg PO DAILY PRN #30 tab 09/08/20 [Last Taken Unknown] hydrochlorothiazide 50 mg tablet 50 mg PO QAM #30 tab 09/08/20 [Last Taken Unknown] amlodipine 5 mg tablet 5 mg PO DAILY #30 tab 09/16/20 [Last Taken Unknown] losartan 25 mg tablet 50 mg PO DAILY #1 tab 09/16/20 [Last Taken Unknown] Amox Tr/Potassium Clavulanate [Augmentin 875-125 Tablet] 875 mg PO Q12H #20 tab 09/25/20 [Last Taken Unknown] - History of Present Ilness Narrative: Patient tested positive for COVID 6 days ago, at that time she had had symptoms for 4 or 5 days. She was seen in the ER 3 days ago, had labs and CXR, was maintaining oxygen and discharged home on augmentin for sinus infection. She states that she thought she was doing better but when she got up this morning she felt more confused than usual and had difficulty handling her cell phone, she was afraid to set up her medications as she didn't want to make a mistake. She only took her augmentin. She still has a cough with white sputum, no shortness of breath, slight chest heaviness. Date (Duration): 09/28/20 Severity: mild Modifying Factors - Improves: Reports: rest Modifying Factors - Worsens: Reports: activity Associated Symptoms: Reports: chest pain/soreness, cough. Denies: shortness of breath, nasal congestion, sore throat, muscle aches, fever/chills Prior Treatment: Reports: recently seen, currently on antibiotics Review of Systems - Review of Systems Constitutional: Present: recent illness. Absent: fever ENT: Absent: sore throat Respiratory: Present: See HPI, cough Cardiology: Present: See HPI Gastrointestinal/Abdominal: Absent: nausea, vomiting, abdominal pain Genitourinary: Absent: frequency, dysuria Musculoskeletal: Absent: back pain Neurological: Absent: headache Medical History (Last Reviewed 09/28/20 @ 12:45 by Mirella Mcwilliams MD) Angioedema (Acute) Pharyngitis (Acute) Angioedema (Acute) Medicare annual wellness visit, subsequent (Acute) Upper respiratory infection (Acute) Sinusitis (Acute) Bronchitis (Acute) Mild intermittent asthma with (acute) exacerbation (Acute) Right otitis media (Acute) Neuropathy (Chronic) Influenza A (Acute) Hypoxia (Acute) Morbid obesity with BMI of 40.0-44.9, adult (Chronic) Nausea (Acute) Headache (Acute) Diabetes (Chronic) Onset Date: ~02/24/18 Acid reflux disease (Chronic) Onset Date: ~02/29/16 Allergic rhinitis (Chronic) Onset Date: ~01/08/14 Generalized anxiety disorder (Chronic) Onset Date: ~05/07/13 CVA (cerebral vascular accident) (Chronic) Depression (Chronic) Onset Date: ~11/10/14 Essential hypertension (Chronic) GERD (gastroesophageal reflux disease) (Chronic) Onset Date: ~10/14/14 Hyperlipidemia (Chronic) Onset Date: ~01/08/14 Hypokalemia (Chronic) Onset Date: ~04/07/16 Pancreatitis (Chronic) Onset Date: ~12/1972 Urinary incontinence (Chronic) Onset Date: ~05/07/13 Colon polyps 12/07/19-tubular adenoma x3 & hyperplastic x1. Edema Weight loss Surgical History: Surgical History (Last Reviewed 09/28/20 @ 12:45 by Mirella Mcwilliams MD) History of appendectomy Onset Date: ~1992 open History of cataract Onset Date: ~07/2013 bilateral History of cholecystectomy Onset Date: ~1972 open History of colonoscopy Onset Date: 12/05/12 12/06/19 Bagan-tubular adenoma x3, hyperplastic polyp. Tortuous sigmoid colon w/moderate diverticulosis. Repeat 3-5 yrs. History of eye surgery to treat cross eye History of vaginal hysterectomy Onset Date: ~01/1993 kept ovaries Family History: Family History (Last Reviewed 09/28/20 @ 11:33 by Elva Don RN) Brother History of open heart surgery 2 brothers Heart disease Mother , age 70's Myocardial infarction Diabetes Uncle CVA (cerebral vascular accident) Hypertension Father , accident Medical history unknown Aunt Cancer unknown type Sister No problems noted. Brother , age 70's Cancer lungs, possible stomach Sister History of open heart surgery 1 sister Alive and well 1 sister Social History: (Last Reviewed 09/28/20 @ 11:33 by Elva Don RN) Social History: Marital status: household members: spouse number of children: 2 current occupational status: retired current occupation: [employer]: No Tobacco: Smoking Status: Never smoker Alcohol: alcohol intake: current details: some days Substance Use: substance use type: does not use Dietary Habits: caffeine: Yes Personal Safety: victim of physical abuse: No victim of emotional abuse: No Physical Exam - Physical Exam General Appearance: Present: wd/wn, alert, no apparent distress, obese Head Exam: Present: normal inspection Eye Exam: Normal inspection: bilateral Ears, Nose, Throat: Present: normal pharynx Respiratory: Present: no respiratory distress, no accessory muscle use, lungs clear, decreased breath sounds Cardiovascular/Chest: Present: regular rate, rhythm, no murmur Gastrointestinal/Abdominal: Present: normal bowel sounds, nontender, nondistended, soft Neurological Exam: Present: alert, oriented, normal mood/affect, no motor/sensory deficits. Absent: facial droop Skin Exam: Present: normal color, warm/dry Progress - Results and Orders Patient's Lab Results:: I have reviewed the patient's lab results. - Vital Signs Patient's Vital Signs:: I have reviewed the patient's vital signs. Vital Signs: Vital Signs 09/28/20 11:27 Temperature 37.2 C Pulse Rate 72 Respiratory Rate 30 H Blood Pressure 195/84 H O2 Sat by Pulse Oximetry 94 - EKG EKG #1 EKG: NSR, no ST T wave changes EKG read: Interp. by me - X-Ray X-Ray #1 X-Ray: chest - Nonspecific hazy bilateral opacities Interpretation: Reviewed by me - CT/Ultrasound CT/Ultrasound Narrative: CT chest: 1. No evidence for pulmonary embolus. 2. Abnormal appearance of lung parenchyma, which may represent sequela of multifocal pneumonia to include COVID 19 pneumonia. Recommend clinical correlation. Probably reactive lymphadenopathy. 3. Indeterminate mass at the upper right breast, as above. 4. Additional findings and comments are as above. - Progress/Reassessment Chief Complaint: Upper Respiratory Symptoms Progress Note-Subjective: 09/28/20 12:47 d-dimer elevated, will get CTA O2 sat down to 87% on RA while talking 09/28/20 14:09 discussed test results with patient, no PE, multifocal infiltrate consistent with COVID, patient is on day 10 or 11 so she doesn't qualify for remdesivir, will start dexamethasone discussed with Valeriano, okay to admit for observation, COVID with hypoxia, start zithromax Departure Clinical Impression: COVID-19, Hypoxia - Departure Disposition: Home self-care Condition: Stable Referrals: Ailyn Finley MD [Primary Care Provider] -
[2020-09-28 12:23] LABS: ALT 32 U/L (19-67); AST 22 U/L (0-48); Albumin * 3.3 gm/dl (3.4-5.0); Alkaline Phosphatase * 100 U/L (50-170); Anion Gap 9.3 mmol/L (6.8-13.8); BUN/Creatinine Ratio 14.1 (9.0-21.6); Bilirubin, Total 0.5 mg/dL (0.0-1.1); Blood Urea Nitrogen 13 mg/dL (3-23); Ca. Corrected For Albumin 8.9 mg/dL (8.4-10.2); Calcium * 8.7 mg/dL (7.9-10.9); Carbon Dioxide 32.8 mmol/L (24-32.6); Chloride 95 mmol/L (97-106); Glucose * 135 mg/dL (70-110); Potassium 3.1 mmol/L (3.4-4.6); Sodium 134 mmol/L (132-142); Total Protein 6.9 gm/dL (6.2-8.2); Troponin I Less than 0.017 ng/mL (0.00-0.10)
[2020-09-28] MEDS ORDERED: DEXAMETHASONE SODIUM PHOSP/PF 10 MG/ML VIAL IV ONE (14:07)
[2020-09-28] MEDS ORDERED: AZITHROMYCIN 250 MG TABLET PO ONE (14:24)
--- NOTE | 2020-09-28 23:41 | HP ---
Chief Complaint - Chief Complaint Date of Service: 09/28/20 Time of Service: 21:30 Chief Complaint: shortness of breath History of Present Illness: Alejandrina is a 75 yo female with COVID19 diagnosed 6 days ago. She first had symptoms about 11 days ago. She has been seen a couple times but sent home as she was not hypoxic. She was also given augmentin for concerns of sinusitis. This morning she felt confused and had difficulty figuring out her cell phone. She reports still coughing and slight chest pressure. Due to the increased confusion she presented to the [facility] ER and was found to be hypoxic at 87% on room air. She had an elevated D-Dimer and had Chest CT which showed: 1. No evidence for pulmonary embolus. 2. Abnormal appearance of lung parenchyma, which may represent sequela of multifocal pneumonia to include COVID 19 pneumonia. Recommend clinical correlation. Probably reactive lymphadenopathy. 3. Indeterminate mass at the upper right breast, as above. 4. Additional findings and comments are as above. Medical History (Last Reviewed 09/28/20 @ 16:29 by Rhona Zamorano RN) Angioedema (Acute) Pharyngitis (Acute) Angioedema (Acute) Medicare annual wellness visit, subsequent (Acute) Upper respiratory infection (Acute) Sinusitis (Acute) Bronchitis (Acute) Mild intermittent asthma with (acute) exacerbation (Acute) Right otitis media (Acute) Neuropathy (Chronic) Influenza A (Acute) Hypoxia (Acute) Morbid obesity with BMI of 40.0-44.9, adult (Chronic) Nausea (Acute) Headache (Acute) Diabetes (Chronic) Onset Date: ~02/24/18 Acid reflux disease (Chronic) Onset Date: ~02/29/16 Allergic rhinitis (Chronic) Onset Date: ~01/08/14 Generalized anxiety disorder (Chronic) Onset Date: ~05/07/13 CVA (cerebral vascular accident) (Chronic) Depression (Chronic) Onset Date: ~11/10/14 Essential hypertension (Chronic) GERD (gastroesophageal reflux disease) (Chronic) Onset Date: ~10/14/14 Hyperlipidemia (Chronic) Onset Date: ~01/08/14 Hypokalemia (Chronic) Onset Date: ~04/07/16 Pancreatitis (Chronic) Onset Date: ~12/1972 Urinary incontinence (Chronic) Onset Date: ~05/07/13 Colon polyps 12/07/19-tubular adenoma x3 & hyperplastic x1. Edema Weight loss Surgical History: Surgical History (Last Reviewed 09/28/20 @ 16:29 by Rhona Zamorano RN) History of appendectomy Onset Date: ~1992 open History of cataract Onset Date: ~07/2013 bilateral History of cholecystectomy Onset Date: ~1972 open History of colonoscopy Onset Date: 12/05/12 12/06/19 B[place]-tubular adenoma x3, hyperplastic polyp. Tortuous sigmoid colon w/moderate diverticulosis. Repeat 3-5 yrs. History of eye surgery to treat cross eye History of vaginal hysterectomy Onset Date: ~01/1993 kept ovaries Family History: Family History (Last Reviewed 09/28/20 @ 16:32 by Rhona Zamorano RN) Brother History of open heart surgery 2 brothers Heart disease Mother , age 70's Diabetes Myocardial infarction Uncle Hypertension CVA (cerebral vascular accident) Father , accident Medical history unknown Aunt Cancer unknown type Sister No problems noted. Brother , age 70's Cancer lungs, possible stomach Heart disease Sister History of open heart surgery 1 sister Alive and well 1 sister Social History: (Last Reviewed 09/28/20 @ 16:34 by Rhona Zamorano RN) Social History: Marital status: household members: spouse number of children: 2 current occupational status: retired current occupation: [employer] Highest level of school completed/degree received: high school graduate Service: No Tobacco: Smoking Status: Never smoker Alcohol: alcohol intake: current alcohol intake frequency: holiday/special occasion details: some days Substance Use: substance use type: does not use Dietary Habits: caffeine: Yes Type: carbonated beverages Personal Safety: victim of physical abuse: No victim of emotional abuse: No Review Of Systems (GEN) - Review of Systems Generalized/Overall Review: Absent: Weakness, Chills, Fever EENTM: Present: No Symptoms Reported Respiratory: Present: Cough. Absent: Shortness of Breath Cardiac: Absent: Chest Pain, Palpitations Abdominal: Absent: Nausea, Vomiting Genitourinary: Absent: Burning, Frequency Musculoskeletal: Present: No Symptoms Reported Neurological: Present: Other - confusion. Absent: Headache Skin: Present: No Symptoms Reported Endocrine: Present: No Symptoms Reported Immunizations: IMMUNIZATION HX Immunizations Up to Date Yes History of Influenza Vaccine Yes Hx Pneumococcal Vaccination No Allergies/Adverse Reactions: Allergies Allergy/AdvReac Type Severity Reaction Status Date / Time No Known Allergies Allergy Verified 09/28/20 16:34 Home Medications: HOME MEDICATIONS Aspirin 325 mg PO DAILY 06/29/14 [Last Taken 12/02/19] Cetirizine HCl [Zyrtec] 10 mg PO BID 04/21/18 [Last Taken 12/04/19] diabetic supplies, miscellan. See Dose Instructions .ROUTE .MEDSUPPLY #1 ea 05/22/18 [Last Taken Unknown] epinephrine 0.3 mg/0.3 mL injection, auto-injector 0.3 mg IM Q10-15M PRN 05/22/18 [Last Taken Unknown] lancets 33 gauge See Dose Instructions .ROUTE .MEDSUPPLY #100 ea 05/22/18 [Last Taken Unknown] multivitamin 1 tab PO DAILY 05/22/18 [Last Taken 12/05/19] escitalopram oxalate 5 mg tablet 5 mg PO DAILY #90 tab 10/29/19 [Last Taken 12/05/19] albuterol sulfate 2.5 mg INHALATION Q6H PRN #90 ml 12/17/19 [Last Taken Unknown] blood sugar diagnostic See Dose Instructions .ROUTE .MEDSUPPLY #50 ea 12/17/19 [Last Taken Unknown] metformin 500 mg tablet 500 mg PO BID #180 tab 01/03/20 [Last Taken Unknown] diltiazem HCl 240 mg capsule,24 hr,extended release 240 mg PO BID #180 cap 06/13/20 [Last Taken Unknown] meloxicam 15 mg tablet 15 mg PO DAILY #30 tab 09/01/20 [Last Taken Unknown] atorvastatin 20 mg tablet 20 mg PO DAILY #30 tab 09/08/20 [Last Taken Unknown] ciclopirox 8 % topical solution 1 applic TP DAILY 28 Days #6.6 ml 09/08/20 [Last Taken Unknown] famotidine 20 mg tablet 20 mg PO BID #60 tab 09/08/20 [Last Taken Unknown] furosemide 20 mg tablet 20 mg PO DAILY PRN #30 tab 09/08/20 [Last Taken Unknown] hydrochlorothiazide 50 mg tablet 50 mg PO QAM #30 tab 09/08/20 [Last Taken Unknown] amlodipine 5 mg tablet 5 mg PO DAILY #30 tab 09/16/20 [Last Taken Unknown] Amox Tr/Potassium Clavulanate [Augmentin 875-125 Tablet] 875 mg PO Q12H #20 tab 09/25/20 [Last Taken Unknown] Losartan Potassium [Cozaar] 50 mg PO DAILY 09/28/20 [Last Taken Unknown] potassium chloride 10 mEq tablet,extended release 40 meq PO BID #240 tab 10/02/20 [Last Taken Unknown] Exam - Exam Vital Signs: Vital Signs - Last Taken Temp 36.3 C 09/28/20 22:52 Pulse 67 09/28/20 22:52 Resp 16 09/28/20 22:52 BP 137/68 09/28/20 22:52 Pulse Ox 94 09/28/20 22:52 Constitutional: Present: Alert, Oriented x3, Cooperative ENT Exam: Present: hearing grossly normal Eye Exam: bilateral eye: normal inspection Respiratory: Present: lungs clear, decreased breath sounds Cardiovascular/Chest: Present: regular rate, rhythm, no murmur Peripheral Pulses: radial (R): 2+, radial (L): 2+ Abdomen: Present: Normal bowel sounds, soft, nontender, nondistended Skin Exam: Present: normal color, warm/dry, no cyanosis Appearance: Present: appropriate appearance, appropriate insight Eye contact: Present: cooperative, good eye contact, normal speech Thoughts: Present: normal thought pattern, no apparent hallucination Diagnostic Studies: Abnormal Lab Results 09/28/20 09/28/20 09/28/20 Range/Units 12:00 12:00 12:01 RDW 14.6 H (11.5-14.0) % Neutrophils % 79.2 H (42-75.0) % Lymphocytes % 13.9 L (20-51) % Lymphocytes # 0.73 L (1.5-3.5) k/mm3 D-Dimer 0.58 H (0.19-0.49) ug/mL Potassium 3.1 L (3.4-4.6) mmol/L Chloride 95 L (97-106) mmol/L Carbon Dioxide 32.8 H (24-32.6) mmol/L Random Glucose 135 H (70-110) mg/dL Albumin 3.3 L (3.4-5.0) gm/dl Laboratory Results WBC 5.3 K/mm3 (4.0-10.5) 09/28/20 12:00 RBC 4.57 M/mm3 (4.2-5.4) 09/28/20 12:00 Hgb 12.6 gm/dL (12.5-16.0) 09/28/20 12:00 Hct 38.5 % (37.0-47.0) 09/28/20 12:00 MCV 84.2 fl (78-100) 09/28/20 12:00 MCH 27.6 pg (27-31) 09/28/20 12:00 MCHC 32.7 g/dl (32-36) 09/28/20 12:00 RDW 14.6 % (11.5-14.0) H 09/28/20 12:00 Plt Count 200 K/mm3 (150-450) 09/28/20 12:00 MPV 9.7 fl (8-12.5) 09/28/20 12:00 Immature Gran % (Auto) 0.20 % (0.001-0.429) 09/28/20 12:00 Immature Gran # (Auto) 0.01 K/mm3 (0.000-0.0310) 09/28/20 12:00 Neutrophils % 79.2 % (42-75.0) H 09/28/20 12:00 Lymphocytes % 13.9 % (20-51) L 09/28/20 12:00 Monocytes % 6.1 % (0.0-9) 09/28/20 12:00 Eosinophils % 0.2 % (0.0-3.0) 09/28/20 12:00 Basophils % 0.4 % (0.0-1.0) 09/28/20 12:00 Nucleated RBC % 0.0 k/mm3 (0-1) 09/28/20 12:00 Neutrophils # 4.2 K/mm3 (1.3-6.0) 09/28/20 12:00 Lymphocytes # 0.73 k/mm3 (1.5-3.5) L 09/28/20 12:00 Monocytes # 0.3 k/mm3 (0.0-1.0) 09/28/20 12:00 Eosinophils # 0.0 k/mm3 (0.0-0.7) 09/28/20 12:00 Absolute Basophils 0.0 k/mm3 (0.0-0.1) 09/28/20 12:00 D-Dimer 0.58 ug/mL (0.19-0.49) H 09/28/20 12:01 Sodium 134 mmol/L (132-142) 09/28/20 12:00 Plasma Sodium 135 mmol/L (130-142) 09/28/20 12:00 Potassium 3.1 mmol/L (3.4-4.6) L 09/28/20 12:00 Chloride 95 mmol/L (97-106) L 09/28/20 12:00 Carbon Dioxide 32.8 mmol/L (24-32.6) H 09/28/20 12:00 Anion Gap 9.3 mmol/L (6.8-13.8) 09/28/20 12:00 BUN 13 mg/dL (3-23) 09/28/20 12:00 Creatinine 0.92 mg/dL (0.4-1.4) 09/28/20 12:00 Est GFR (Non-Af Amer) 63 mL/min (60-130) D 09/28/20 12:00 BUN/Creatinine Ratio 14.1 (9.0-21.6) 09/28/20 12:00 Random Glucose 135 mg/dL (70-110) H 09/28/20 12:00 Calcium 8.7 mg/dL (7.9-10.9) 09/28/20 12:00 Calcium Adj for Albumin 8.9 mg/dL (8.4-10.2) 09/28/20 12:00 Total Bilirubin 0.5 mg/dL (0.0-1.1) 09/28/20 12:00 AST 22 U/L (0-48) 09/28/20 12:00 ALT 32 U/L (19-67) 09/28/20 12:00 Alkaline Phosphatase 100 U/L (50-170) 09/28/20 12:00 Troponin I Less than 0.017 ng/mL (0.00-0.10) 09/28/20 12:00 Total Protein 6.9 gm/dL (6.2-8.2) 09/28/20 12:00 Albumin 3.3 gm/dl (3.4-5.0) L 09/28/20 12:00 Assessment/Plan - Narrative Narrative: Alejandrina is a 75 yo female admitted for acute respiratory failure with hypoxia secondary to COVID19. She is past the window for Remdesivir. She will be treated with dexamethasone IV and oxygen at 1lpm to keep sats above 90%. Will work to wean off oxygen. Will admit to inpatient status due to hypoxia and will treat and wean from oxygen which will likely take >2 midnights. - Assessment/Plan (1) Acute respiratory failure due to COVID-19 Problem: Acute (2) COVID-19 Problem: Acute
[2020-09-29] MEDS: LOSARTAN POTASSIUM 50 MG TABLET PO SCH (09:42)
[2020-09-29] MEDS: DILTIAZEM HCL 240 MG CAP.SR.24H PO SCH ×2 (09:42→20:33)
[2020-09-29] MEDS: metFORMIN HCL 500 MG TABLET PO SCH ×2 (09:42→16:28)
[2020-09-29] MEDS: amLODIPine BESYLATE 5 MG TABLET PO SCH (09:42)
[2020-09-29] MEDS: POTASSIUM CHLORIDE 20 MEQ TABLET.SA PO SCH ×2 (09:44→16:28)
[2020-09-29] MEDS: ENOXAPARIN SODIUM 40 MG/0.4 ML SYRG SC SCH (12:18)
--- NOTE | 2020-09-29 12:46 | PN ---
Subjective - Date and Time Seen Date: 09/29/20 Time: 09:55 Subjective Narrative: She states she is feels better with the oxygen supplementation. She continues to have a productive cough. Denies fevers. She is tolerating her diet. Objective - Review of Systems Generalized/Overall Review: Denies: Fever Respiratory: Reports: Cough, Shortness of Breath Cardiac: Denies: Chest Pain Abdominal: Denies: Abdominal Pain Misc: All systems neg except as marked - Vitals Vitals: Last Vital Signs Temp 36.8 C 09/29/20 07:59 Pulse 81 09/29/20 09:42 Resp 18 09/29/20 07:59 BP 164/84 H 09/29/20 09:42 Pulse Ox 92 L 09/29/20 07:59 - Exam Constitutional: Present: Alert, Cooperative, Well developed, Well nourished, No distress, Elderly, Morbidly obese ENT Exam: Present: hearing grossly normal Neck: Present: non-tender, supple. Absent: lymphadenopathy (R), lymphadenopathy (L) Respiratory: Present: lungs clear, no respiratory distress, no accessory muscle use, No wheezing. Absent: crackles, rhonchi Cardiovascular/Chest: Present: normal peripheral pulses, regular rate, rhythm, no edema, no murmur Abdomen: Present: Normal bowel sounds, soft, nontender Extremity: Present: no pedal edema Skin Exam: Present: normal color, warm/dry Neurologic: Present: alert, normal mood/affect Eye contact: Present: cooperative Thoughts: Present: normal thought pattern, normal mood /affect Assessment/Plan Plan Narrative: 75-year-old female with a past medical history of depression, CVA, diabetes, hypertension, anxiety, hyperlipidemia, hypokalemia, morbid obesity and urinary incontinence presents from home with Covid pneumonia. She was hypoxic and is currently requiring 1 L of oxygen via nasal cannula. Today she feels better with the oxygen supplementation. Since she is requiring oxygen supplementation I will change her to inpatient status and try to wean her off of oxygen prior to discharge. Plan #1 wean to baseline oxygen #2 continue home medications for comorbidities #3 continue with dexamethasone #4 CBC and CMP in the morning #5 VTE prophylaxis - Problems/Diagnosis (1) COVID-19 Problem: Acute (2) Hypoxia Problem: Acute (3) Morbid obesity with BMI of 40.0-44.9, adult Problem: Chronic (4) Diabetes Problem: Chronic Qualifiers: Diabetes mellitus type: type 2 Diabetes mellitus long term acute care registered nurse insulin use: without long term acute care registered nurse use Diabetes mellitus complication status: with neurologic complications Diabetes mellitus complication detail: with polyneuropathy Qualified Code(s): E11.42 - Type 2 diabetes mellitus with diabetic polyneuropathy (5) Generalized anxiety disorder Problem: Chronic (6) Depression Problem: Chronic (7) Essential hypertension Problem: Chronic (8) Hyperlipidemia Problem: Chronic Qualifiers: Hyperlipidemia type: unspecified Qualified Code(s): E78.5 - Hyperlipidemia, unspecified (9) Hypokalemia Problem: Chronic
[2020-09-29] MEDS: DEXAMETHASONE 2 MG TABLET PO SCH (16:28)
[2020-09-30] MEDS: metFORMIN HCL 500 MG TABLET PO SCH ×2 (08:46→16:00)
[2020-09-30] MEDS: POTASSIUM CHLORIDE 20 MEQ TABLET.SA PO SCH ×2 (08:46→16:00)
[2020-09-30] MEDS: DEXAMETHASONE 2 MG TABLET PO SCH (08:46)
[2020-09-30] MEDS: DILTIAZEM HCL 240 MG CAP.SR.24H PO SCH ×2 (08:47→20:01)
[2020-09-30] MEDS: amLODIPine BESYLATE 5 MG TABLET PO SCH (08:47)
[2020-09-30] MEDS: LOSARTAN POTASSIUM 50 MG TABLET PO SCH (08:47)
[2020-09-30] MEDS: ENOXAPARIN SODIUM 40 MG/0.4 ML SYRG SC SCH (10:14)
--- NOTE | 2020-09-30 10:41 | PN ---
Subjective - Date and Time Seen Date: 09/30/20 Time: 09:28 Subjective Narrative: She continues to improve. She does have a productive cough. Shortness of breath is improving. She is tolerating her diet, moving her bowels and bladder well. Objective - Review of Systems Generalized/Overall Review: Denies: Fever Respiratory: Reports: Cough. Denies: Shortness of Breath Cardiac: Denies: Chest Pain Abdominal: Denies: Abdominal Pain Misc: All systems neg except as marked - Vitals Vitals: Last Vital Signs Temp 36.7 C 09/30/20 10:24 Pulse 68 09/30/20 10:24 Resp 18 09/30/20 10:24 BP 165/65 H 09/30/20 10:24 Pulse Ox 96 09/30/20 10:24 - Exam Constitutional: Present: Alert, Cooperative, Well developed, Well nourished, No distress, Elderly ENT Exam: Present: hearing grossly normal Neck: Present: non-tender, supple. Absent: lymphadenopathy (R), lymphadenopathy (L) Respiratory: Present: lungs clear, no respiratory distress, no accessory muscle use, No wheezing. Absent: crackles, rhonchi Cardiovascular/Chest: Present: normal peripheral pulses, regular rate, rhythm, no edema, no murmur Abdomen: Present: Normal bowel sounds, soft, nontender Extremity: Present: no pedal edema Skin Exam: Present: normal color, warm/dry Neurologic: Present: alert, normal mood/affect Appearance: Present: appropriate appearance, appropriate insight Eye contact: Present: cooperative Thoughts: Present: normal thought pattern, normal mood /affect Assessment/Plan Plan Narrative: 75-year-old female with a past medical history of depression, CVA, diabetes, hypertension, anxiety, hyperlipidemia, hypokalemia, morbid obesity and urinary incontinence presents from home with Covid pneumonia. She was hypoxic and is currently requiring 1 L of oxygen via nasal cannula. She is feeling better today. She is currently on room air and doing well. We will check her oxygen saturation with ambulation. She will remain overnight see how she does on room air. Discharge planning for tomorrow. Plan #1 wean to baseline oxygen #2 continue home medications for comorbidities #3 continue with dexamethasone #4 CBC and CMP in the morning #5 VTE prophylaxis #6 replete potassium as needed - Problems/Diagnosis (1) COVID-19 Problem: Acute (2) Hypoxia Problem: Acute (3) Morbid obesity with BMI of 40.0-44.9, adult Problem: Chronic (4) Diabetes Problem: Chronic Qualifiers: Diabetes mellitus type: type 2 Diabetes mellitus buttermaker continuous churn insulin use: without buttermaker continuous churn use Diabetes mellitus complication status: with neurologic complications Diabetes mellitus complication detail: with polyneuropathy Qualified Code(s): E11.42 - Type 2 diabetes mellitus with diabetic polyneuropathy (5) Generalized anxiety disorder Problem: Chronic (6) Depression Problem: Chronic (7) Essential hypertension Problem: Chronic (8) Hyperlipidemia Problem: Chronic Qualifiers: Hyperlipidemia type: unspecified Qualified Code(s): E78.5 - Hyperlipidemia, unspecified (9) Hypokalemia Problem: Chronic
[2020-09-30 11:03] LABS: Hematocrit 39.4 % (37.0-47.0); Hemoglobin 12.6 gm/dL (12.5-16.0); Mean Cell Volume 85.8 fl (78-100); Mean Corpuscular Hemoglobin 27.5 pg (27-31); Mean Platelet Volume 9.9 fl (8-12.5); Neutrophil # 10.1 K/mm3 (1.3-6.0); Neutrophil % 89.8 % (42-75.0); Platelet Count 239 K/mm3 (150-450); Red Blood Count 4.59 M/mm3 (4.2-5.4); Red Cell Distribution Width 14.6 % (11.5-14.0); White Blood Count 11.2 K/mm3 (4.0-10.5)
[2020-09-30 11:17] LABS: Albumin * 3.2 gm/dl (3.4-5.0); Anion Gap 9.8 mmol/L (6.8-13.8); BUN/Creatinine Ratio 26.3 (9.0-21.6); Bilirubin, Total 0.3 mg/dL (0.0-1.1); Ca. Corrected For Albumin 9.6 mg/dL (8.4-10.2); Calcium * 9.3 mg/dL (7.9-10.9); Carbon Dioxide 31.7 mmol/L (24-32.6); Potassium 4.5 mmol/L (3.4-4.6); Total Protein 7.2 gm/dL (6.2-8.2)
[2020-10-01] MEDS ORDERED: IBUPROFEN 400 MG TABLET PO ONE (10:20)
[2020-10-01] MEDS: DILTIAZEM HCL 240 MG CAP.SR.24H PO SCH (10:23)
[2020-10-01] MEDS: metFORMIN HCL 500 MG TABLET PO SCH (10:23)
[2020-10-01] MEDS: DEXAMETHASONE 2 MG TABLET PO SCH (10:23)
[2020-10-01] MEDS: LOSARTAN POTASSIUM 50 MG TABLET PO SCH (10:23)
[2020-10-01] MEDS: POTASSIUM CHLORIDE 20 MEQ TABLET.SA PO SCH (10:23)
[2020-10-01] MEDS: amLODIPine BESYLATE 5 MG TABLET PO SCH (10:23)
--- NOTE | 2020-10-01 11:58 | DS ---
(1) COVID-19 Problem: Acute (2) Hypoxia Problem: Acute (3) Morbid obesity with BMI of 40.0-44.9, adult Problem: Chronic (4) Diabetes Problem: Chronic Qualifiers: Diabetes mellitus type: type 2 Diabetes mellitus superintendent marine oil terminal insulin use: without longterm use Diabetes mellitus complication status: with neurologic complications Diabetes mellitus complication detail: with polyneuropathy Qualified Code(s): E11.42 - Type 2 diabetes mellitus with diabetic polyneuropathy (5) Generalized anxiety disorder Problem: Chronic (6) Depression Problem: Chronic (7) Essential hypertension Problem: Chronic (8) Hyperlipidemia Problem: Chronic Qualifiers: Hyperlipidemia type: unspecified Qualified Code(s): E78.5 - Hyperlipidemia, unspecified (9) Hypokalemia Problem: Chronic Hospital Course: 75-year-old female with a past medical history of depression, CVA, diabetes, hypertension, anxiety, hyperlipidemia, hypokalemia, morbid obesity and urinary incontinence presents from home with Covid pneumonia. She was hypoxic and is currently requiring 1 L of oxygen via nasal cannula. She continues to make progress daily. She has been stable on room air at rest and with ambulation for the past 24 hours. She is stable to be discharged home today. She will follow-up with me in the office in the next 1 to 2 weeks Procedures Performed: none Results and Findings: Lab Pending Results 09/28/20 12:00: WBC 5.3, RBC 4.57, Hgb 12.6, Hct 38.5, MCV 84.2, MCH 27.6, MCHC 32.7, RDW 14.6 H, Plt Count 200, MPV 9.7, Immature Gran % (Auto) 0.20, Immature Gran # (Auto) 0.01, Neutrophils % 79.2 H, Lymphocytes % 13.9 L, Monocytes % 6.1, Eosinophils % 0.2, Basophils % 0.4, Nucleated RBC % 0.0, Neutrophils # 4.2, Lymphocytes # 0.73 L, Monocytes # 0.3, Eosinophils # 0.0, Absolute Basophils 0.0 09/28/20 12:00: Sodium 134, Plasma Sodium 135, Potassium 3.1 L, Chloride 95 L, Carbon Dioxide 32.8 H, Anion Gap 9.3, BUN 13, Creatinine 0.92, Est GFR (Non-Af Amer) 63 D, BUN/Creatinine Ratio 14.1, Random Glucose 135 H, Calcium 8.7, Calcium Adj for Albumin 8.9, Total Bilirubin 0.5, AST 22, ALT 32, Alkaline Phosphatase 100, Troponin I Less than 0.017, Total Protein 6.9, Albumin 3.3 L 09/28/20 12:01: D-Dimer 0.58 H 09/30/20 10:55: WBC 11.2 H D, RBC 4.59, Hgb 12.6, Hct 39.4, MCV 85.8, MCH 27.5, MCHC 32.0, RDW 14.6 H, Plt Count 239, MPV 9.9, Immature Gran % (Auto) 0.40, Immature Gran # (Auto) 0.05 H, Neutrophils % 89.8 H, Lymphocytes % 6.2 L, Monoc ytes % 3.5, Eosinophils % 0.0, Basophils % 0.1, Nucleated RBC % 0.0, Neutrophils # 10.1 H, Lymphocytes # 0.70 L, Monocytes # 0.4, Eosinophils # 0.0, Absolute Basophils 0.0 09/30/20 10:55: Sodium 137, Plasma Sodium 139, Potassium 4.5 D, Chloride 100, Carbon Dioxide 31.7, Anion Gap 9.8, BUN 21 D, Creatinine 0.80, Est GFR (Non-Af Amer) 75, BUN/Creatinine Ratio 26.3 H, Random Glucose 228 H D, Calcium 9.3, Calcium Adj for Albumin 9.6, Total Bilirubin 0.3, AST 16, ALT 23, Alkaline Phosphatase 87, Total Protein 7.2, Albumin 3.2 L Discharge Location: Home Disposition: Home self-care Condition: Stable Discharge Activity: Activity as tolerated Discharge Diet: Consistent carbs Referrals: Ailyn Finley MD [Primary Care Provider] - Additional Patient Instructions (free text): Needs home treatment plan for Covid patients in clinic. Complete Home Medications List: Complete Home Medication List: Aspirin 325 mg PO DAILY 06/29/14 Cetirizine HCl [Zyrtec] 10 mg PO BID 04/21/18 diabetic supplies, miscellan. See Dose Instructions .ROUTE .MEDSUPPLY #1 ea 05/22/18 epinephrine 0.3 mg/0.3 mL injection, auto-injector 0.3 mg IM Q10-15M PRN 05/22/18 lancets 33 gauge See Dose Instructions .ROUTE .MEDSUPPLY #100 ea 05/22/18 multivitamin 1 tab PO DAILY 05/22/18 escitalopram oxalate 5 mg tablet 5 mg PO DAILY #90 tab 10/29/19 albuterol sulfate 2.5 mg INHALATION Q6H PRN #90 ml 12/17/19 blood sugar diagnostic See Dose Instructions .ROUTE .MEDSUPPLY #50 ea 12/17/19 metformin 500 mg tablet 500 mg PO BID #180 tab 01/03/20 diltiazem HCl 240 mg capsule,24 hr,extended release 240 mg PO BID #180 cap 06/13/20 potassium chloride 10 mEq tablet,extended release 40 meq PO BID #240 tab 08/22/20 meloxicam 15 mg tablet 15 mg PO DAILY #30 tab 09/01/20 atorvastatin 20 mg tablet 20 mg PO DAILY #30 tab 09/08/20 ciclopirox 8 % topical solution 1 applic TP DAILY 28 Days #6.6 ml 09/08/20 famotidine 20 mg tablet 20 mg PO BID #60 tab 09/08/20 furosemide 20 mg tablet 20 mg PO DAILY PRN #30 tab 09/08/20 hydrochlorothiazide 50 mg tablet 50 mg PO QAM #30 tab 09/08/20 amlodipine 5 mg tablet 5 mg PO DAILY #30 tab 09/16/20 Amox Tr/Potassium Clavulanate [Augmentin 875-125 Tablet] 875 mg PO Q12H #20 tab 09/25/20 Losartan Potassium [Cozaar] 50 mg PO DAILY 09/28/20
[2020-10-01] MEDS: ENOXAPARIN SODIUM 40 MG/0.4 ML SYRG SC SCH (12:34)
[2020-10-01 15:45] VITALS: BP 161/74
== END 2020-10-01 14:15 | disposition home or self-care (01) | DRG 177 ==
LOC: ER 10:53 → SCU 10:53
PROVIDERS: ADMIT Family Medicine; ATTEND Internal Medicine
DX: E11.42 Type 2 diabetes mellitus with diabetic polyneuropathy; E66.01 Morbid (severe) obesity due to excess calories; Z68.41 Body mass index [BMI] 40.0-44.9, adult; E87.6 Hypokalemia; U07.1 COVID-19; J96.01 Acute respiratory failure with hypoxia; I10 Essential (primary) hypertension; E78.5 Hyperlipidemia, unspecified; F32.9 Major depressive disorder, single episode, unspecified; F41.1 Generalized anxiety disorder